=== PATIENT | male | born 1950 | race American Indian/Alaskan Native ===

== ENCOUNTER 2019-04-24 10:47 | Day surgery (SDC) | payer MEDICARE ==
[~2019-04-24 10:47] MED LIST: APRACLONIDINE 1% OPHTH SOLN DROPERETTE ONE; PHENYLEPHRINE 10% OPHTH SOLN 5 ML ONE; TROPICAMIDE 1% OPHTH SOLN 3 ML ONE
[2019-04-24] MEDS ORDERED: APRACLONIDINE 1% OPHTH SOLN DROPERETTE OU ONE ×2 (11:36→12:28)
[2019-04-24] MEDS ORDERED: PHENYLEPHRINE 10% OPHTH SOLN 5 ML OU ONE (11:36)
[2019-04-24] MEDS ORDERED: TROPICAMIDE 1% OPHTH SOLN 3 ML OU ONE (11:36)
[2019-04-24 12:20] VITALS: BP 147/79
== END 2019-04-24 12:30 | disposition home or self-care (01) ==
LOC: OR 10:47
PROVIDERS: ATTEND Ophthalmology
DX: E11.36 Type 2 diabetes mellitus with diabetic cataract (principal); H26.493 Other secondary cataract, bilateral; H35.00 Unspecified background retinopathy; E11.319 Type 2 diabetes mellitus with unspecified diabetic retinopathy without macular edema; E78.00 Pure hypercholesterolemia, unspecified; I10 Essential (primary) hypertension; G47.30 Sleep apnea, unspecified; K21.9 Gastro-esophageal reflux disease without esophagitis; F17.210 Nicotine dependence, cigarettes, uncomplicated; Z90.49 Acquired absence of other specified parts of digestive tract; Z79.899 Other long term (current) drug therapy; Z79.4 Long term (current) use of insulin; Z98.41 Cataract extraction status, right eye; Z98.42 Cataract extraction status, left eye; Z98.890 Other specified postprocedural states; Z86.2 Personal history of diseases of the blood and blood-forming organs and certain disorders involving the immune mechanism
CPT/HCPCS: 82962